=== PATIENT | male | born 1975 | race Caucasian/White ===

== ENCOUNTER 2017-06-05 16:55 | Emergency (ER) | payer BC ==
[2017-06-05 17:01] VITALS: BMI 39.0
--- NOTE | 2017-06-05 19:47 | DR.GENAD ---
HPI - PCP Primary Care Physician: DR. MCCORMICK - Complaint/Symptoms Chief Complaint:: BACK STARTED HURTING 2 WEEKS AGO AND HAS GOTTEN WORSE. HE THINKS IT MAY HAVE TO DO WITH HIS KIDNEYS HE IS NOT SURE. - Nurses notes reviewed Nurses Notes Review: Yes - Source History Provided: Patient - Mode of Arrival Mode of Arrival: Ambulatory - Timing Onset of Chief Complaint: 05/22/17 PMH - PMH Past Medical History: Yes Past Medical History: Diabetes Past Surgical History: No - Family History History of Family Medical Conditions: Yes Family Medical History: Diabetes Mellitus, Hypertension - Social History Does patient currently use any type of tobacco product: No Have you used tobacco products in the last 12 months: No Type of Tobacco Use: None Does any household member use tobacco: No Do you use any recreational Drugs:: No Lives With: Family Lives Where: Home - infectious screening In the last 2 months have you had wt loss of >10#?: NO Have you had fever, night sweats or hemotysis?: No Have you traveled outside the country in the last 6 months?: No Isolation: Standard PE - Vital Signs Vitals: Temperature 98.2 F Pulse Rate 82 Respiratory Rate 18 Blood Pressure 131/74 O2 Sat by Pulse Oximetry 98 ROR - Labs Reviewed Result Diagrams: 06/05/17 19:56 06/05/17 19:56 Laboratory: WBC 5.1 X10^3/uL (3.6-10.0) 06/05/17 19:56 RBC 4.82 X10^6/uL (4.7-6.0) 06/05/17 19:56 Hgb 16.3 g/dL (13.5-18.0) 06/05/17 19:56 Hct 44.1 % (42.0-54.0) 06/05/17 19:56 MCV 91.5 fL (80.0-100.0) 06/05/17 19:56 MCH 33.8 pg (27.0-34.0) 06/05/17 19:56 MCHC 37.0 g/dL (33.0-35.0) H 06/05/17 19:56 RDW 13.9 % (11.6-16.5) 06/05/17 19:56 Plt Count 273 X10^3/uL (150.0-450.0) 06/05/17 19:56 MPV 7.3 fL (7.4-11.0) L 06/05/17 19:56 Neut % 58.1 % (42.0-75.0) 06/05/17 19:56 Lymph % 31.1 % (21.0-51.0) 06/05/17 19:56 Garrett % 8.8 % (0.0-13.0) 06/05/17 19:56 Eos % 1.5 % (0.9-2.9) 06/05/17 19:56 Baso % 0.5 % (0.2-1.0) 06/05/17 19:56 Neut # 3.0 x10^3/uL (2.2-4.8) 06/05/17 19:56 Lymph # 1.6 X10^3/uL (1.3-2.9) 06/05/17 19:56 Garrett # 0.4 x10^3/uL (0.3-0.8) 06/05/17 19:56 Eos # 0.1 x10^3/uL (0.0-0.2) 06/05/17 19:56 Baso # 0.0 X10^3/uL (0.0-0.1) 06/05/17 19:56 Absolute Nucleated RBC 0.1 /100WBC 06/05/17 19:56 Sodium 142 mmol/L (136-145) 06/05/17 19:56 Corrected Sodium 145 mmol/L (136-145) 06/05/17 19:56 Potassium 4.1 mmol/L (3.5-5.1) 06/05/17 19:56 Chloride 105 mmol/L (98-107) 06/05/17 19:56 Carbon Dioxide 27.3 mmol/L (21-32) 06/05/17 19:56 BUN 21 mg/dL (7-18) H 06/05/17 19:56 Creatinine 1.27 mg/dL (0.70-1.30) 06/05/17 19:56 Est GFR (MDRD) Af Amer > 60 (>60) 06/05/17 19:56 Est GFR (MDRD) Non-Af > 60 (>60) 06/05/17 19:56 Glucose 221 mg/dL (65-99) H 06/05/17 19:56 Calcium 8.8 mg/dL (8.5-10.1) 06/05/17 19:56 Corrected Calcium TNP 06/05/17 19:56 Total Bilirubin 0.40 mg/dL (0.2-1.0) 06/05/17 19:56 AST 12 Units/L (15-37) L 06/05/17 19:56 ALT 44 Units/L (12-78) 06/05/17 19:56 Alkaline Phosphatase 68 Units/L (46-116) 06/05/17 19:56 Total Protein 7.4 g/dL (6.4-8.2) 06/05/17 19:56 Albumin 3.9 g/dL (3.4-5.0) 06/05/17 19:56 Globulin 3.5 g/dL (2.5-4.5) 06/05/17 19:56 Albumin/Globulin Ratio 1.1 Ratio (1.1-2.1) 06/05/17 19:56 Specimen Type Clean catch urine 06/05/17 19:41 Urine Color Yellow (YELLOW) 06/05/17 19:41 Urine Appearance Clear (CLEAR) 06/05/17 19:41 Urine pH 5.0 (5.0 - 8.0) 06/05/17 19:41 Ur Specific [place] 1.020 (1.000-1.030) 06/05/17 19:41 Urine Protein Negative (NEGATIVE) 06/05/17 19:41 Urine Glucose (UA) 4+ (NEGATIVE) 06/05/17 19:41 Urine Ketones Negative (NEGATIVE) 06/05/17 19:41 Urine Occult Blood Negative (NEGATIVE) 06/05/17 19:41 Urine Nitrite Negative (NEGATIVE) 06/05/17 19:41 Urine Bilirubin Negative (NEGATIVE) 06/05/17 19:41 Urine Urobilinogen Normal (NORMAL) 06/05/17 19:41 Ur Leukocyte Esterase Negative (NEGATIVE) 06/05/17 19:41 Urine RBC 0 /HPF (NEGATIVE) 06/05/17 19:41 Urine WBC 0 /HPF (NEGATIVE) 06/05/17 19:41 Ur Squamous Epith Cells Negative /HPF (NEGATIVE) 06/05/17 19:41 Urine Bacteria Negative /HPF (NEGATIVE) 06/05/17 19:41 Ur Culture Indicated? No/not indicated 06/05/17 19:41 - Discharge Plan Condition: Stable Prescriptions: Ibuprofen [MOTRIN TAB 800 MG *] 800 mg PO Q8H PRN #20 tab PRN Reason: Pain/Inflammation Tramadol HCl 50 mg PO BID #15 tablet - Follow ups/Referrals Follow ups/Referrals: INÉS MCCORMICK [Primary Care Provider] - 3 days GABRIEL MERCHANT [CONSULTING PHYSICIAN] - 3 days - Instructions Instructions: Low Back Sprain With Rehab-SportsMed, Kidney Stones, Uheh-oe-Tylg Additional Instructions: RETURN TO ED IF WORSE.
[2017-06-05 19:57] LABS: BILIRUBIN,URINE NEGATIVE (NEGATIVE); BLOOD/HEMOGLOBIN,URINE NEGATIVE (NEGATIVE); GLUCOSE, URINE 4+ (NEGATIVE); KETONES,URINE NEGATIVE (NEGATIVE); LEUKOCYTE ESTERASE ,URINE NEGATIVE (NEGATIVE); NITRITES,URINE NEGATIVE (NEGATIVE); PROTEIN,URINE NEGATIVE (NEGATIVE); UROBILINOGEN,URINE NORMAL (NORMAL)
[2017-06-05 20:06] LABS: APPEARANCE,URINE CLEAR (CLEAR); BACTERIA,URINE NEGATIVE /HPF (NEGATIVE); COLOR,URINE YELLOW (YELLOW); RBC,URINE 0 /HPF (NEGATIVE); SQUAMOUS EPITHELIAL CELL,UR NEGATIVE /HPF (NEGATIVE)
[2017-06-05 20:12] LABS: BASOPHILS % (AUTO) 0.5 % (0.2-1.0); EOSINOPHILS # (AUTO) 0.1 x10^3/uL (0.0-0.2); EOSINOPHILS % (AUTO) 1.5 % (0.9-2.9); HEMATOCRIT 44.1 % (42.0-54.0); HEMOGLOBIN 16.3 g/dL (13.5-18.0); LYMPHOCYTES # (AUTO) 1.6 X10^3/uL (1.3-2.9); LYMPHOCYTES % (AUTO) 31.1 % (21.0-51.0); MEAN CORPUSCULAR HEMOGLOBIN 33.8 pg (27.0-34.0); MEAN CORPUSCULAR VOLUME 91.5 fL (80.0-100.0); MEAN PLATELET VOLUME 7.3 fL (7.4-11.0); MONOCYTES # (AUTO) 0.4 x10^3/uL (0.3-0.8); MONOCYTES % (AUTO) 8.8 % (0.0-13.0); NEUTROPHILS % (AUTO) 58.1 % (42.0-75.0); PLATELET COUNT 273 X10^3/uL (150.0-450.0); RED BLOOD COUNT 4.82 X10^6/uL (4.7-6.0); RED CELL DISTRIBUTION WIDTH 13.9 % (11.6-16.5); WHITE BLOOD COUNT 5.1 X10^3/uL (3.6-10.0)
[2017-06-05 20:26] LABS: ALANINE AMINOTRANSFERASE 44 Units/L (12-78); ALBUMIN 3.9 g/dL (3.4-5.0); ALKALINE PHOSPHATASE 68 Units/L (46-116); ASPARTATE AMINO TRANSFERASE 12 Units/L (15-37); BLOOD UREA NITROGEN 21 mg/dL (7-18); CALCIUM 8.8 mg/dL (8.5-10.1); CARBON DIOXIDE 27.3 mmol/L (21-32); CHLORIDE 105 mmol/L (98-107); COR NA(FOR HYPERGLY) 145 mmol/L (136-145); CREATININE 1.27 mg/dL (0.70-1.30); SODIUM 142 mmol/L (136-145); TOTAL PROTEIN 7.4 g/dL (6.4-8.2); eGFR BLACK RACES > 60 (>60); eGFR NON BLACK RACES > 60 (>60)
--- NOTE | 2017-06-05 20:34 | CT ---
Indication: Pain . Exam: CT abdomen and pelvis without contrast. Technique: Axial spiral images were obtained from lung bases through the pubic symphysis without cont rast. Coronal and sagittal multiplanar reconstructions were performed. Automated dose control was uti lized. Findings: There is a 5 mm nodule in the right middle lobe centrally . The liver is normal size with g eographic fatty replacement throughout. The gallbladder, pancreas, and bile ducts normal . The spleen measures 15 cm in length and is normal density. The adrenals are normal. There is a 1.6 cm stone aditya ng the upper pole left kidney extending into the parenchyma. No hydronephrosis is seen. The right kid michelle is unremarkable. The ureters are normal caliber. The appendix is normal. There are diverticula sc attered along the sigmoid colon with no pericolonic inflammation. The bladder is unremarkable. Degene rative changes are seen throughout the spine with no aggressive osseous lesion. Impression: 16 mm stone upper pole left kidney with no hydronephrosis and no CT evidence of urinary obstruction . Geographic fatty replacement throughout the liver with no acute abnormality seen. Mild splenomegaly . 5 mm nodule in the right middle lobe, recommend short-term follow-up to assure stability. Mild diverticulosis of the sigmoid colon with no pericolonic inflammation. Reported By:
[2017-06-05 21:46] VITALS: BP 131/73
== END 2017-06-05 21:45 | disposition home or self-care (01) ==
LOC: ER 17:09
DX: S33.5XXA Sprain of ligaments of lumbar spine, initial encounter (principal); N20.0 Calculus of kidney; R16.1 Splenomegaly, not elsewhere classified; K57.30 Diverticulosis of large intestine without perforation or abscess without bleeding; X58.XXXA Exposure to other specified factors, initial encounter
CPT/HCPCS: 36415; 74176; 80053; 81001; 85025; 99282